=== PATIENT | female | born 1960 | race Caucasian/White ===

== ENCOUNTER → 2023-03-04 10:20 | Outpatient (CLI) | payer BC, OTHER, SELFPAY ==
--- NOTE | ~2023-03-04 | MR_ITS ---
EXAMINATION: MR lumbar spine wo con DATE: 03/04/2023 10:48 INDICATION: Radiculopathy, lumbar region. TECHNIQUE: Magnetic resonance imaging (MRI) of the lumbar spine was performed without intravenous con trast. Sequences included sagittal T2-weighted FSE, sagittal T2-weighted FS FSE, sagittal T1-weighted FSE, and axial T2-weighted FSE. COMPARISON: None FINDINGS: There is 11 degrees levoscoliosis of lumbar spine. There is 3 mm retrolisthesis of L3 on L4 and 6 mm retrolisthesis of L4 on L5. There is mildly decreased disc height at L2-L3 and severely dec reased disc height at L3-L4, L4-L5, and L5-S1 with endplate remodeling. The distal spinal cord signal intensity is normal. The conus medullaris is at L1. The following disc levels are specifically discu ssed: L1-L2: There is a central protrusion. There is severe bilateral facet joint osteoarthritis. There is mild bilateral neural foraminal stenosis. There is mild central canal stenosis. L2-L3: The disc is bulging. There is severe right and moderate left facet joint osteoarthritis. There is mild bilateral neural foraminal stenosis. There is mild central canal stenosis. L3-L4: The disc is bulging. There is severe right and moderate left facet joint osteoarthritis. There is moderate right and mild left neural foraminal stenosis. There is mild central canal stenosis. L4-L5: The disc is bulging. There is mild left facet joint osteoarthritis. There is moderate bilatera l neural foraminal stenosis. There is mild central canal stenosis. L5-S1: The disc is bulging. There is severe bilateral facet joint osteoarthritis. There is mild right and moderate left neural foraminal stenosis. There is mild central canal stenosis. IMPRESSION: 1. Severe lumbar spondylosis. 2. Lumbar levoscoliosis. Reviewed, dictated and finalized at location A.
== END ==
PROVIDERS: PCP Family Medicine; Visit Provider Anesthesiology Pain Medicine
DX: M47.26 Other spondylosis with radiculopathy, lumbar region (principal)
CPT/HCPCS: 72148

== ENCOUNTER 2024-08-04 05:48 | Emergency (ER) | payer BC, SELFPAY ==
--- NOTE | ~2024-08-04 | XR_ITS ---
EXAMINATION: XR chest 2V DATE: 08/04/2024 06:42 INDICATION: Chest pain. Shortness of breath. Cough. TECHNIQUE: Frontal and lateral views of the chest were obtained. COMPARISON: None. FINDINGS: There is mild scarring at the lung apices. No pleural effusion or pneumothorax. The heart s ize is normal. IMPRESSION: 1. Mild scarring at the lung apices. Reviewed, dictated and finalized at location A. 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
--- OUTSIDE RECORDS SUMMARY | 2024-08-04 05:51 | XMS_ITS | Continuity of Care Document ---
Author Organization [facility] Address [address] [place] [address] Phone Care Team Providers Care Material Handler Loader Name Role Phone Jona PTRosalva Unavailable Unavailabl e Procedures Procedure Date Manual Therapy Therapeutic Exercise PT Evaluation Low Complexity Therapeutic Exercise Manual Therapy Advance Directives Directive Yes / No Effective Date File Name No Information Encounters Encounter Description Practice Location Reason(s) For Visit Diagnoses Date Provider Providers Copied on Encounter [facility] [address], [place], [place], [id number], tel:[phone] [place] No Information 1 Anhoffer Rosalva. . [facility] [address], [place], [place], [id number], tel:[phone] [place] No Information 1 Niederhoffer Rosalva. . Referring Provider: Laith Vasquez, [address], [place], [address]. tel:[phone] [facility] [address] [place], [place] [address], [place], [place], [id number], tel:[phone] [place] No Information 1 Niederhoffer Rosalva. . Referring Provider: Laith Vasquez, [address], [place], [address]. tel:[phone] Family History Family Member Type Diagnosis Age At Onset No Information Payers Payer name Insurance type Covered green party ID Abraham wyman(s) [facility] [id number] Social History Type Description Quantity Date Captured Comments Sex Female Smoking Status No Information Chief Complaint And Reason For Visit No Information Reason For Referral Reason For Referral No Information History Of Present Illness Encounter Date Complaint History Of Prese nt Illness No Information Functional Status Date Functional Assessmen t No Information Instructions Date Instruction Additional Infor mation Giving encouragement to exercise Related to Overweight Giving encouragement to exercise Related to Overweight Assessments Type Assessment Date No Information Patient Care Teams Name Effective Dates (start - stop) Status Members No Information
--- OUTSIDE RECORDS SUMMARY | 2024-08-04 05:51 | XMS_ITS | Data Portability ---
Author Organization [facility] Address [address] [place] [address] Assessment No assessment recorded. Plan of Treatment Reminders Order Date Submit Date Provider Last Modified By Organization Details Last Modified Time Details Appointments ANY 15 2024 07:00A Xena Cobb, DO Not available Not available Not available Lab CBC w/ auto diff 2023 024 TRACEY [facility], [address], [place], [address], 04/04/2024 08:30:15 hepatic function panel, serum 2023 024 [email or web address] [facility], [address], [place], [address], 12/01/2023 11:43:53 lipid panel, serum 2023 024 TRACEY [facility], [address], [place], [address], 10/20/2023 16:36:26 hepatic function panel, serum 2023 024 TRACEY [facility], [address], [place], [address], 10/20/2023 16:36:28 iron + total iron-bind ing capacity (TIBC), serum 2023 024 TRACEY [facility], [address], [place], [address], 10/20/2023 16:36:29 CBC 2023 024 TRACEY [facility], [address], [facility] [address], [address], 10/20/2023 16:36:27 Referral gynecolog ist referral 2023 024 ATHENAFAX Gretchen Perera MD, [address] [facility], [facility] [address], [place], [address], 05/04/2024 10:25:22 Procedures None recorded. Surgeries None recorded. Imaging US, hip - rt hip 2023 024 [email or web address] [facility] Scheduling, [address] [facility], [place], [address], 05/03/2024 13:48:28 US, hip - u/s rt hip mass 2023 024 [email or web address] [facility] Scheduling, [address] [facility], [place], [address], 04/03/2024 13:40:02 Medication Orders cyclobenz aprine 10 mg tablet 2023 024 [email or web address] [facility] [id number], [address], 05/03/2024 13:48:28 tramadol 50 mg tablet 2023 024 TRACEY [facility] In [facility], [address] [place] [address], [address], 08/02/2023 09:39:01 Patient TargetsNo targets recorded. Patient Instructions Encounter Date Encounter Id Patient Instructions Last Modified By Organization Details Last Modified Time 05/03/2024 [id number] refer to cashier assistant [email or web address] Not available 05/03/2024 09:39:14 Reason for Referral Infant Childcare Provider Referral for Gy necologic examination Referring Physician: Abad Cobb, Family Medicine, Encounter Date: 05/03/2024 Results Created Date Observation Date Name Description Value Unit Range Abnormal Flag Note LastModifiedBy Organization Detail LastModifiedTime 10/19/19 24 10/20/2023 LIPID PANEL cholesterol, total 179 mg/dL 100-19 9 Not Available [facility] ([facility]) [address] [place], [address], 10/20/2023 16:36:26 10/19/19 24 10/20/2023 LIPID PANEL triglyceride s 137 mg/dL 0-149 Not Available [facility] ([facility]) [address] [place], [address], 10/20/2023 16:36:26 10/19/19 24 10/20/2023 LIPID PANEL HDL cholesterol 43 mg/dL >39 Not Available [facility] ([facility]) [address] [place], [address], 10/20/2023 16:36:26 10/19/19 24 10/20/2023 LIPID PANEL VLDL cholesterol angelo 24 mg/dL 5-40 Not Available [facility] ([facility]) [address] [place], [address], 10/20/2023 16:36:26 10/19/19 24 10/20/2023 LIPID PANEL LDL chol calc ([facility]) 112 mg/dL 0-99 above high normal Not Available [facility] ([facility]) [address] [place], [address], 10/20/2023 16:36:26 10/19/19 24 10/20/2023 CBC+P LATEL ET+HE M REVIE W WBC 7.7 x10e3 /uL 3.4-10 .8 Not Available [facility] ([facility]) [address] [place], [address], 10/20/2023 16:36:27 10/19/19 24 10/20/2023 CBC+P LATEL ET+HE M REVIE W RBC 3.34 x10e6 /uL 3.77-5 .28 below low normal Not Available [facility] ([facility]) [address] [place], [address], 10/20/2023 16:36:27 10/19/19 24 10/20/2023 CBC+P LATEL ET+HE M REVIE W hemoglobin 11.1 g/dL 11.1-1 5.9 Not Available [facility] ([facility]) [address] [place], [address], 10/20/2023 16:36:27 10/19/19 24 10/20/2023 CBC+P LATEL ET+HE M REVIE W hematocrit 33.7 % 34.0-4 6.6 below low normal Not Available [facility] ([facility]) [address] [place], [address], 10/20/2023 16:36:27 10/19/19 24 10/20/2023 CBC+P LATEL ET+HE M REVIE W MCV 101 fL 79-97 above high normal Not Available [facility] ([facility]) [address] [place], [address], 10/20/2023 16:36:27 10/19/19 24 10/20/2023 CBC+P LATEL ET+HE M REVIE W MCH 33.2 pg 26.6-3 3.0 above high normal Not Available [facility] ([facility]) [address] [place], [address], 10/20/2023 16:36:27 10/19/19 24 10/20/2023 CBC+P LATEL ET+HE M REVIE W MCHC 32.9 g/dL 31.5-3 5.7 Not Available [facility] ([facility]) [address] [place], [address], 10/20/2023 16:36:27 04/30/20 24 10/20/2023 CBC+P LATEL ET+HE M REVIE W RDW 12.4 % 11.7-1 5.4 Not Available [facility] ([facility]) [address] [facility], [place], [address], 10/20/2023 16:36:27 10/19/19 24 10/20/2023 CBC+P LATEL ET+HE M REVIE W platelets 504 x10e3 /uL 150-45 0 above high normal Not Available [facility] ([facility]) [address] [facility], [place], [address], 10/20/2023 16:36:27 10/19/19 24 10/20/2023 CBC+P LATEL ET+HE M REVIE W neutrophils 62 % notest ab. Not Available [facility] ([facility]) [address] [facility], [place], [address], 10/20/2023 16:36:27 10/19/19 24 10/20/2023 CBC+P LATEL ET+HE M REVIE W lymphs 31 % notest ab. Not Available [facility] ([facility]) [address] [facility], [place], [address], 10/20/2023 16:36:27 10/19/19 24 10/20/2023 CBC+P LATEL ET+HE M REVIE W monocytes 5 % notest ab. Not Available [facility] ([facility]) [address] [facility], [place], [address], 10/20/2023 16:36:27 10/19/19 24 10/20/2023 CBC+P LATEL ET+HE M REVIE W eos 1 % notest ab. Not Available [facility] ([facility]) [address] [facility], [place], [address], 10/20/2023 16:36:27 10/19/19 24 10/20/2023 CBC+P LATEL ET+HE M REVIE W basos 1 % notest ab. Not Available [facility] ([facility]) [address] [facility], [place], [address], 10/20/2023 16:36:27 10/19/19 24 10/20/2023 CBC+P LATEL ET+HE M REVIE W neutrophils absolute 4.8 x10e3 /uL 1.4-7. 0 Not Available [facility] ([facility]) [address] [facility], [place], [address], 10/20/2023 16:36:27 10/19/19 24 10/20/2023 CBC+P LATEL ET+HE M REVIE W lymphs (absolute) 2.4 x10e3 /uL 0.7-3. 1 Not Available [facility] ([facility]) [address] [facility], [place], [address], 10/20/2023 16:36:27 10/19/19 24 10/20/2023 CBC+P LATEL ET+HE M REVIE W monocytes(ab solute) 0.4 x10e3 /uL 0.1-0. 9 Not Available [facility] ([facility]) [address] [facility], [place], [address], 10/20/2023 16:36:27 10/19/19 24 10/20/2023 CBC+P LATEL ET+HE M REVIE W eos (absolute value) 0.1 x10e3 /uL 0.0-0. 4 Not Available [facility] ([facility]) [address] [facility], [place], [address], 10/20/2023 16:36:27 10/19/19 24 10/20/2023 CBC+P LATEL ET+HE M REVIE W baso(absolut e) 0.1 x10e3 /uL 0.0-0. 2 Not Available [facility] ([facility]) [address] [place], [address], 10/20/2023 16:36:27 10/19/19 24 10/20/2023 CBC+P LATEL ET+HE M REVIE W RBC comment Macroc ytosis . Not Available [facility] ([facility]) [address] [facility], [address], 10/20/2023 16:36:27 10/19/19 24 10/20/2023 CBC+P LATEL ET+HE M REVIE W platelet comment Increa sed adequa te Not Available [facility] ([facility]) [address] [facility] [place], [address], 10/20/2023 16:36:27 10/19/19 24 10/20/2023 HEPAT IC FUNCT ION PANEL (7) protein, total 7.2 g/dL 6.0-8. 5 Not Available [facility] ([facility]) [address] [facility] [place], [address], 10/20/2023 16:36:28 10/19/19 24 10/20/2023 HEPAT IC FUNCT ION PANEL (7) albumin 4.2 g/dL 3.9-4. 9 Not Available [facility] ([facility]) [address] [facility] [place], [address], 10/20/2023 16:36:28 10/19/19 24 10/20/2023 HEPAT IC FUNCT ION PANEL (7) bilirubin, total 0.3 mg/dL 0.0-1. 2 Not Available [facility] ([facility]) [address] [facility] [place], [address], 10/20/2023 16:36:28 10/19/19 24 10/20/2023 HEPAT IC FUNCT ION PANEL (7) bilirubin, direct 0.10 mg/dL 0.00-0 .40 Not Available [facility] ([facility]) [address] [facility] [place], [address], 10/20/2023 16:36:28 10/19/19 24 10/20/2023 HEPAT IC FUNCT ION PANEL (7) alkaline phosphatase 153 IU/L 44-121 above high normal Not Available [facility] ([facility]) [address] [place], [address], 10/20/2023 16:36:28 10/19/19 24 10/20/2023 HEPAT IC FUNCT ION PANEL (7) AST (SGOT) 17 IU/L 0-40 Not Available [facility] ([facility]) [address] [place], [address], 10/20/2023 16:36:28 10/19/19 24 10/20/2023 HEPAT IC FUNCT ION PANEL (7) ALT (SGPT) 13 IU/L 0-32 Not Available [facility] ([facility]) [address] [place], [address], 10/20/2023 16:36:28 10/19/19 24 10/20/2023 IRON AND TIBC iron bind.cap.(TI BC) 334 ug/dL 250-45 0 Not Available [facility] ([facility]) [address] [place], [address], 10/20/2023 16:36:28 10/19/19 24 10/20/2023 IRON AND TIBC UIBC 295 ug/dL 118-36 9 Not Available [facility] ([facility]) [address] [place], [address], 10/20/2023 16:36:28 10/19/19 24 10/20/2023 IRON AND TIBC iron 39 ug/dL 27-139 Not Available [facility] ([facility]) [address] [place], [address], 10/20/2023 16:36:28 10/19/19 24 10/20/2023 IRON AND TIBC iron saturation 12 % 15-55 below low normal Not Available [facility] ([facility]) [address] [place], [address], 10/20/2023 16:36:28 04/03/2004/04/2024 HEPAT IC FUNCT ION PANEL (7) protein, total 7.0 g/dL 6.0-8. 5 Not Available [facility] ([facility]) [address] [facility] [place], [address], 04/04/2024 08:30:13 04/03/2004/04/2024 HEPAT IC FUNCT ION PANEL (7) albumin 4.5 g/dL 3.9-4. 9 Not Available [facility] ([facility]) [address] [facility] [place], [address], 04/04/2024 08:30:13 04/03/2004/04/2024 HEPAT IC FUNCT ION PANEL (7) bilirubin, total 0.4 mg/dL 0.0-1. 2 Not Available [facility] ([facility]) [address] [facility] [place], [address], 04/04/2024 08:30:13 04/03/2004/04/2024 HEPAT IC FUNCT ION PANEL (7) bilirubin, direct 0.11 mg/dL 0.00-0 .40 Not Available [facility] ([facility]) [address] [facility] [place], [address], 04/04/2024 08:30:13 04/03/2004/04/2024 HEPAT IC FUNCT ION PANEL (7) alkaline phosphatase 126 IU/L 44-121 above high normal Not Available [facility] ([facility]) [address] [facility] [place], [address], 04/04/2024 08:30:13 04/03/2004/04/2024 HEPAT IC FUNCT ION PANEL (7) AST (SGOT) 16 IU/L 0-40 Not Available [facility] ([facility]) [address] [facility] [place], [address], 04/04/2024 08:30:13 04/03/20 24 04/04/2024 HEPAT IC FUNCT ION PANEL (7) ALT (SGPT) 13 IU/L 0-32 Not Available [facility] ([facility]) [address] [facility], [place], [address], 04/04/2024 08:30:13 04/03/20 24 04/04/2024 CBC WITH DIFFE RENTI AL/PL ATELE T WBC 5.4 x10e3 /uL 3.4-10 .8 Not Available [facility] ([facility]) [address] [facility] [place], [address], 04/04/2024 08:30:15 04/03/2004/04/2024 CBC WITH DIFFE RENTI AL/PL ATELE T RBC 3.60 x10e6 /uL 3.77-5 .28 below low normal Not Available [facility] ([facility]) [address] [facility], [place], [address], 04/04/2024 08:30:15 04/03/2004/04/2024 CBC WITH DIFFE RENTI AL/PL ATELE T hemoglobin 11.9 g/dL 11.1-1 5.9 Not Available [facility] ([facility]) [address] [place], [address], 04/04/2024 08:30:15 04/03/2004/04/2024 CBC WITH DIFFE RENTI AL/PL ATELE T hematocrit 36.5 % 34.0-4 6.6 Not Available [facility] ([facility]) [address] [place], [address], 04/04/2024 08:30:15 04/03/20 24 04/04/2024 CBC WITH DIFFE RENTI AL/PL ATELE T MCV 101 fL 79-97 above high normal Not Available [facility] ([facility]) [address] [place], [address], 04/04/2024 08:30:15 04/03/20 24 04/04/2024 CBC WITH DIFFE RENTI AL/PL ATELE T MCH 33.1 pg 26.6-3 3.0 above high normal Not Available [facility] ([facility]) [address] [facility], [place], [address], 04/04/2024 08:30:15 04/03/2004/04/2024 CBC WITH DIFFE RENTI AL/PL ATELE T MCHC 32.6 g/dL 31.5-3 5.7 Not Available [facility] ([facility]) [address] [facility], [place], [address], 04/04/2024 08:30:15 04/03/2004/04/2024 CBC WITH DIFFE RENTI AL/PL ATELE T RDW 12.4 % 11.7-1 5.4 Not Available [facility] ([facility]) [address] [facility], [place], [address], 04/04/2024 08:30:15 04/03/2004/04/2024 CBC WITH DIFFE RENTI AL/PL ATELE T platelets 414 x10e3 /uL 150-45 0 Not Available [facility] ([facility]) [address] [facility], [place], [address], 04/04/2024 08:30:15 04/03/2004/04/2024 CBC WITH DIFFE RENTI AL/PL ATELE T neutrophils 53 % notest ab. Not Available [facility] ([facility]) [address] [facility], [place], [address], 04/04/2024 08:30:15 04/03/2004/04/2024 CBC WITH DIFFE RENTI AL/PL ATELE T lymphs 38 % notest ab. Not Available [facility] ([facility]) [address] [facility], [place], [address], 04/04/2024 08:30:15 10/14/20 24 04/04/2024 CBC WITH DIFFE RENTI AL/PL ATELE T monocytes 6 % notest ab. Not Available [facility] ([facility]) [address] [facility], [place], [address], 04/04/2024 08:30:15 04/03/20 24 04/04/2024 CBC WITH DIFFE RENTI AL/PL ATELE T eos 2 % notest ab. Not Available [facility] ([facility]) [address] [facility], [place], [address], 04/04/2024 08:30:15 04/03/2004/04/2024 CBC WITH DIFFE RENTI AL/PL ATELE T basos 1 % notest ab. Not Available [facility] ([facility]) [address] [facility], [place], [address], 04/04/2024 08:30:15 04/03/2004/04/2024 CBC WITH DIFFE RENTI AL/PL ATELE T neutrophils (absolute) 2.8 x10e3 /uL 1.4-7. 0 Not Available [facility] ([facility]) [address] [facility], [place], [address], 04/04/2024 08:30:15 04/03/20 24 04/04/2024 CBC WITH DIFFE RENTI AL/PL ATELE T lymphs (absolute) 2.1 x10e3 /uL 0.7-3. 1 Not Available [facility] ([facility]) [address] [facility], [place], [address], 04/04/2024 08:30:15 04/03/2004/04/2024 CBC WITH DIFFE RENTI AL/PL ATELE T monocytes(ab solute) 0.3 x10e3 /uL 0.1-0. 9 Not Available [facility] ([facility]) [address] [facility], [place], [address], 04/04/2024 08:30:15 04/03/20 24 04/04/2024 CBC WITH DIFFE RENTI AL/PL ATELE T eos (absolute) 0.1 x10e3 /uL 0.0-0. 4 Not Available [facility] ([facility]) [address] [facility], [place], [address], 04/04/2024 08:30:15 04/03/20 24 04/04/2024 CBC WITH DIFFE RENTI AL/PL ATELE T baso (absolute) 0.0 x10e3 /uL 0.0-0. 2 Not Available [facility] ([facility]) [address] [facility], [place], [address], 04/04/2024 08:30:15 04/03/20 24 04/04/2024 CBC WITH DIFFE RENTI AL/PL ATELE T immature granulocytes 0 % notest ab. Not Available [facility] ([facility]) [address] [facility], [place], [address], 04/04/2024 08:30:15 04/03/20 24 04/04/2024 CBC WITH DIFFE RENTI AL/PL ATELE T immature grans (abs) 0.0 x10e3 /uL 0.0-0. 1 Not Available [facility] ([facility]) [address] [facility], [place], [address], 04/04/2024 08:30:15 Result Notes None recorded. Problems Name Problem SNOMED Code Status Onset Date Resolution Date Notes Provider Name and Address Organization Details Recorded Time Chronic pain syndrome 017416849 Active 2023 Abad Cobb DO Attn: Caron stacy,[address] [facility], [place], [address], [facility] 12:49:12 Gastroesophage al reflux disease without esophagitis 796988381 Active 2023 Abad Cobb DO Attn: Caron stacy,[address] [place], [address], [facility] - [facility] 4 12:49:13 Depressive disorder 39458296 Active 2023 Abad Cobb DO Attn: Caron stacy,[address] [place], [address] [place] [address] 2, [facility] - [facility] 4 12:49:15 Iron deficiency anemia 72217589 Active 2023 Abad Cobb DO Attn: Caron stacy,[address] [place], [address] [place] [address] 2, [facility] - [facility] 4 12:49:16 Hyperglycemia 06108681 Active 2023 Abad Cobb DO Attn: Caron stacy,[address] [place], [address] [place] [address] 2, [facility] - [facility] 4 12:49:18 Vitamin D deficiency 56247526 Active 2023 Abad Cobb DO Attn: Caron stacy,[address] [place], [address] [place] [address] 2, [facility] - [facility] 4 09:44:31 Ex-smoker 2929040 Active 2023 Abad Cobb DO Attn: Lorenamatheus stacy,[address] [place], [address] [place] [address] 2, [facility] - [facility] 4 09:45:37 Lipoma 56886198 Active 2023 Abad Cobb DO Attn: Lorenamatheus stacy,[address] [place], [address] [place] [address] 2, [facility] - [facility] 4 09:35:28 Problem Notes None recorded. Medical Equipment None Reported. Allergies No known drug allergies Medications Name Sig Start Date Stop Date Status Note LastModified by Organization Details LastModified Time cyclobenzap rine 10 mg tablet TAKE 1 TABLET BY MOUTH 3 TIMES A DAY NEEDED active Not Available Not Available No t Available hydrocodone 5 mg-acetamin ophen 325 mg tablet TAKE 1 TABLET BY MOUTH EVERY DAY 08/02 completed Not Available Not Available Not Available Zithromax Z-Geovani 250 mg tablet TAKE 2 TABLETS (500 MG) BY ORAL ROUTE ONCE DAILY FOR 1 DAY THEN 1 TABLET (250 MG) BY ORAL ROUTE ONCE DAILY FOR 4 DAYS 2024 active Not Available Not Available Not Avai lable tramadol 50 mg tablet Take 1 tablet every 6 hours by oral route. 2024 active Not Available Not Available Not Avai lable citalopram 20 mg tablet TAKE 1 TABLET BY MOUTH EVERY DAY active Not Available Not Available No t Available lorazepam 0.5 mg tablet TAKE 1 TABLET BY MOUTH EVERY DAY NEEDED FOR ANXIETY 08/02 completed Not Available Not Available Not Available ciprofloxac in 0.3 % eye drops INSTILL 1 DROP INTO AFFECTED EYE(S) BY OPHTHALMI C ROUTE EVERY 6 HOURS FOR 2 DAYS active Not Available Not Available No t Available hydrocodone 7.5 mg-acetamin ophen 325 mg tablet TAKE 1 TABLET BY MOUTH TWICE A DAY NEEDED 08/02 completed Not Available Not Available Not Available pantoprazol e 40 mg tablet,marissa yed release TAKE 1 TABLET TWICE A DAY BY ORAL ROUTE FOR 90 DAYS. active Not Available Not Available No t Available methylpredn isolone 4 mg tablets in a dose pack TAKE 6 TABLETS ON DAY 1 DIRECTED ON PACKAGE AND DECREASE BY 1 TAB EACH DAY FOR A TOTAL OF 6 DAYS 08/02 completed Not Available Not Available Not Available Vitals Date Recorded Body weight Body mass index (BMI) Body height Oxygen saturation Oxygen saturation in Arterial blood by Pulse oximetry Heart rate Body temperature Provider Name and Address Organization Details Last Updated DateTime 4 58413.1 6 g 24.6 kg/m2 162.56 cm 99 % 99 % 111 /min 98 [degF] Julieta [facility] 4 09:28:02 Date Recorded Systolic blood pressure Diastolic blood pressure Provider Name and Address Organization Details Last Updated DateTime 08/02/2023 148 mm[Hg] 82 mm[Hg] Abad Cobb DO Attn: Accounting,[address] [facility], [place], [address], [facility] 08/02/2023 09:44:54 Date Recorded Body height Body mass index (BMI) Body weight Oxygen saturation Oxygen saturation in Arterial blood by Pulse oximetry Heart rate Provider Name and Address Organization Details Last Updated DateTime 4 162.56 cm 24.5 kg/m2 01139.7 1 g 97 % 97 % 96 /min Adriana Awad MA [facility] 11:18:36 Date Recorded Systolic blood pressure Diastolic blood pressure Provider Name and Address Organization Details Last Updated DateTime 11/01/2023 124 mm[Hg] 78 mm[Hg] Abad Cobb DO Attn: Accounting,[address] [place], [address], [facility] 11/01/2023 11:48:10 Date Recorded Body height Body mass index (BMI) Body weight Oxygen saturation Oxygen saturation in Arterial blood by Pulse oximetry Heart rate Provider Name and Address Organization Details Last Updated DateTime 162.56 cm 25.4 kg/m2 11335.6 7 g 99 % 99 % 94 /min Susana Valero MA [facility] 09:03:03 Date Recorded Systolic blood pressure Diastolic blood pressure Provider Name and Address Organization Details Last Updated DateTime 05/03/2024 138 mm[Hg] 84 mm[Hg] Abad Cobb DO Attn: Accounting,[address] [place], [address] 05/03/2024 09:38:31 Social History Question Answer Notes LastModified by Organizat ion Details LastModified Time Tobacco Smoking Status Former Smoker Julieta Degroot MA null, [facility] 08/02/2023 09:27:04 What Is Your Level Of Alcohol Consumption? None Information not available 08/02/2023 What Was The Date Of Your Most Recent Tobacco Screening? 05/03/2024 [email or web address] Information not available 05/03/2024 Do You Or Have You Ever Used Any Other Forms Of Tobacco Or Nicotine? No Information not available 08/02/2023 Sex: Unknown Functional Status None recorded. Mental Status None recorded. Family History Nothing Reported. Medical History Condition Response Coronary Artery Disease N Other Y Atrial Fibrillation N High Blood Pressure N Thyroid Problems N Kidney or Bladder Problems N GI Problems N Depression N COPD N Blood Clots N Skin Problems N Eating Disorder N Anemia N Heart Attack (IA) N Anxiety Disorder Y Diabetes N Muscle, Joint, or Bone Problems N Arthritis N Seizures/Epilepsy N Acid Reflux (GERD) Y Cancer N Stroke N Asthma N Allergies N ADHD N Substance Abuse N High Cholesterol N Hepatitis N Liver Disease N Schizophrenia N Headaches N Heart Failure N Osteoporosis Y Gynecological HistoryNo gynecological history recorded. Obstetrics History GPAL:G 0 P 0 0 0 0 Past Encounters Encounter ID Performer Location Encounter Start Date Encounter Closed Date Diagnosis/Indication Diagnosis SNOMED-CT Code Diagnosis ICD10 Code Diagnosis Note [id number] Abad Cobb, DO [email or web address] [place] [address] [place] [id number] 08/02/2023 09:16:11 08/05/2023 08:54:53 Chronic pain syndrome 320396318 G89.4 tramadol prn Gastroesop hageal reflux disease without esophagitis 469999694 K21.9 pantoprazo le 40 mg Depressive disorder 3548 9007 F32.A celexa 20 mg daily Iron defic iency anemia 19898935 D50.9 last hgb 10.9same as 5 years agorecheck a iron and cbc Hyperglycemia 59018958 R 73.9 labs reviewed Vitamin D deficiency 347 79331 E55.9 otc replacemen t Ex-smoker 6347136 Z87.89 1 quit 3 years agohad been doing 1 cigarette a day [id number] Abad Cobb, DO [email or web address] [place] [address] [id number] 11/01/2023 10:14:59 11/01/2023 12:10:20 Chronic pain syndrome 410168552 G89.4 tramadol prnChronic condition Depressive disorder 3548 9007 F32.A celexa 20 mg dailyChron ic conditionS table and at goal Ex-smoker 4612018 Z87.89 1 quit 3 years agohad been doing 1 cigarette a dayRecomme nd complete cessation Gastroesop hageal reflux disease without esophagitis 669192569 K21.9 pantoprazo le 40 mgchronic conditionA t goal Vitamin D deficiency 347 30077 E55.9 otc replacemen t Iron defic iency anemia 78697459 D50.9 Chronic conditionL ast hemoglobin normalLast iron level normal as of October 19, 2023She did have a slightly elevated alkaline phosphatas eLabs will be repeatedPl atelet count 504 [place] 61911724 D17.9 mass right anterior hip regionus [id number] [facility] DO [facility] Samina torres [place] II [address] [facility] [address] [facility] [address] 05/03/2024 08:55:03 05/03/2024 11:27:13 Chronic pain syndrome [id number] G89.4 tramadol prnChronic condition Depressive disorder 3548 9007 F32.A celexa 20 mg dailyChron ic conditionS table and at goal Gastroesop hageal reflux disease without esophagitis [id number] K21.9 pantoprazo le 40 mgchronic conditionA t goal Iron defic iency anemia [id number] D50.9 Chronic conditionL ast hemoglobin normalLast iron level normal as of October 19, 2023 Vitamin D deficiency 347 63515 E55.9 otc replacemen t Lipoma [id number] D17.9 mass right anterior hip regionchec k a us Gynecologi c examination [id number] Z01.419 Health Concerns Section Related Observation LastModified by Organization Detai ls LastModified Time None Recorded Concern Status LastModified by Organization Details LastModified Time None Recorded Advance Directives Directive None Recorded Payers Encounter Date Sequence Insurance Name Policy Number Policy Crump Covered Member ID Crump Member ID Guarantor Name 08/02/2023 1 [place] [id number] Muna Hilderbrand [id number] Muna Hilderbrand 11/01/2023 1 [place] [id number] 3 Muna Hilderbrand [id number] Muna Hilderbrand 05/03/2024 1 [place] [id number] 3 Muna Hilderbrand [id number] Muna Hilderbrand Notes Date Note Type Note Provider Name and Address Organization Details Recorded Time 08/02/2023 text/html establish caredoing well Abad Cobb DO Attn: Accounting,[address] [facility], [place], [address], [facility] 08/02/2023 18:57:11 11/01/2023 text/html Routine 3-month follow-upmass right anterior hip years Abad Cobb DO Attn: Accounting,[address] [facility], [place], [address], [facility] 11/01/2023 20:05:38 05/03/2024 text/html routine 6 month follow updid not get the mass on her hip taken care of Abad Cobb DO Attn: Accounting,[address] [facility], [place], [address], [facility] 05/03/2024 18:26:54 OBGyn Episode No OBEpisode recorded.
--- OUTSIDE RECORDS SUMMARY | 2024-08-04 05:51 | XMS_ITS | Clinical Summary ---
Author Organization [facility] Address [address] [place] [id number] Care Team Providers Care Office System Analyst Name Role Phone Jacoby Monroy MD Primary Care Provider Unavail able Allergies No known active allergies Medications HYDROcodone-acet aminophen 7.5-325 MG tablet Take 1 tablet by mouth 2 (two) times daily as needed. 12/03/2020 Active LORazepam 0.5 MG tablet Take 1 tablet by mouth as needed. 11/14/2020 Active pantoprazole EC 20 MG tablet Take 20 mg by mouth daily. Active citalopram 20 MG tablet Take 20 mg by mouth daily. Active Multiple Vitamins-Mineral s (MULTIVITAMIN ADULTS OR) Take 1 mg by mouth daily. Active VITAMIN D, CHOLECALCIFEROL, OR Take 1 tablet by mouth daily. Active cyclobenzaprine 10 MG tablet Take 10 mg by mouth as needed. FOR MUSCLE SPASMS 12/31/2020 Active Family History Medical History Relation Comments Diabetes Brother diet controlled No Known Problems Daughter No Known Problems Father No Known Problems Mother Dementia Sister No Known Problems Son Relation Status Comments Brother Alive Daughter Alive Father Mother Sister Alive Son Alive Social History Tobacco Use Types Packs/Day Years Used Date Smoking Tobacco: Never Smokeless Tobacco: Never Alcohol Use Standard Drinks/Week Comments Not Currently 0 (1 standard drink = 0.6 oz pur e alcohol) Comments No Sex and Gender Information Value Date Recorded Sex Assigned at Not on file Legal Sex Female 6:30 PM CDT Gender Identity Not on file Sexual Orientation Not on file Last Filed Vital Signs Vital Sign Reading Time Taken Comments Blood Pressure 168/93 01/16/2021 5:35 PM CDT Pulse 90 01/16/2021 5:35 PM CDT Temperature 36.9 C (98.4 F) 01/16/2021 5:35 PM CDT Respiratory Rate 18 01/16/2021 5:35 PM CDT Oxygen Saturation 100% 01/16/2021 5:35 PM CDT Inhaled Oxygen Concentration - - Weight 66 kg (145 lb 8.1 oz) 01/16/2021 10:00 AM CDT Height 162.6 cm (5' 4 ) 01/16/2021 10:00 AM CDT Body Mass Index 24.98 01/16/2021 10:00 AM CDT Plan of Treatment Health Maintenance Due Date Last Done Comments Cervical Cancer Screening Pa p Smear (Age 30 to 64) Every 3 Years 1962 Colorectal Cancer Screening Colonoscopy (10 Years) 1962 Annual Physical 1965 Hepatitis C 1980 Cervical Cancer Screening Pa p with HPV Testing (Age 30 to 64) Every 5 Years 1992 Cervical Cancer Screening wi th HPV 1992 Mammogram Screening 2002 Zoster Vaccines (1 of 2) 2012 DTaP, Tdap and Td Vaccines ( 2 - Td or Tdap) 07/05/2018 07/05/2008 COVID-19 Vaccine (3 - 2023-2 5 season) 2024 10/14/2020, 09/23/2020 Influenza Adult (#1) 2024 03/21/2022 RSV Immunization or 60+ Years (1 - 1-dose 75+ series) 2037 Meningococcal B Vaccine Aged Out No l onger eligible based on patient's age to complete this topic Meningococcal Vaccine Aged Out No john ileana eligible based on patient's age to complete this topic Pneumococcal Vaccine: Pediatrics (0 to 5 Years) and At-Risk Patients (6 to 64 Years) Aged Out No longer eligible b ased on patient's age to complete this topic RSV Immunizations Under 20 Months Aged Out No longer eligible b ased on patient's age to complete this topic Medical Devices Implanted Type Area Lining Stamper Device Identifier Shelf Expiration Date Model / Serial / Lot Lapiplasty 3.5mm Transverse Screw Implanted:Qty: 1 on 01/16/2021 by Laith Flynn DPM at [facility] Screw Right: Foot [id number] 12/13/2022 [id number] / / [id number] Description:MARIA ESTHER Ibs 2.2-S Snap Off Screw Implanted:Qty: 1 on 01/16/2021 by Laith Flynn DPM at [facility] Screw Right: Toe [id number] 03/20/2024 S22 [id number] / / [id number] Description:[id number], RIGHT SECOND TOE Neospan Superelastic Compression Staple With Instuments Implanted:Qty: 1 on 01/16/2021 by Laith Flynn DPM at [facility] Staple Right: Foot [id number] 08/03/2025 T50 [id number] / / [id number] Description:[id number] K-Wire 1.1mm Implanted:Qty: 1 on 01/16/2021 by Laith Flynn DPM at [facility] Wire Right: Toe 0.045 INCH [id number] S / / Description:2ND RIGHT TOE Lapiplasty System 2, Anatomic Biplanar Implants Implanted:Qty: 1 on 01/16/2021 by Laith Flynn DPM at [facility] Right: Foot [id number] 11/13/2023 14 / / [id number] Description:MARIA ESTHER, RIGHT ME DIAL FOOT/GREAT TOE Tribio Implant Implanted:Qty: 1 on 01/16/2021 by Laith Flynn DPM at [facility] Right: Foot [id number] 10/18/2022 [id number] / [id number] / [id number] Description:[id number] Alloaid Pip Allograft Implanted:Qty: 1 on 01/16/2021 by Laith Flynn DPM at [facility] Right: Toe 03/01/2022 [id number] / / Description:[id number], 2ND TO E Insurance [facility] Care Teams Office System Analyst Relationship Specialty Start Date End Date Jacoby Monroy MD PCP - General FAMILY PRACTICE 12/16/20
--- NOTE | 2024-08-04 06:02 | ECG_ITS ---
Test Date: 2024-08-04 06:14:40 Measurements Intervals [place] Rate: 106 P: 34 FL: 167 QRS: 27 QRSD: 103 T: 38 QT: 351 QTc: 468 Interpretive Statements SINUS TACHYCARDIA BORDERLINE R WAVE PROGRESSION, ANTERIOR LEADS CONSIDER INFERIOR INFARCT, AGE INDETERMINATE BASELINE ARTIFACT- V5 ABNORMAL ECG No previous ECG available for comparison Electronically Signed On 08-04-2024 06:56:45 STATE APPELLATE CLERK by Derrell Zapata D.O.
[2024-08-04 06:13] VITALS: BP 162/96; PULSE 104; RESP 16; TEMP 36.4; O2SAT 97
[2024-08-04 06:32] LABS: Basophils Percent Auto 0.2 % (0.2-1.2); Eosinophils Percent Auto 0.6 % (0-4.4); Hemoglobin 12.2 g/dL (12.0-15.0); Immature Granulocyte Absolute 0.01 K/mm3 (0.00-0.031); Immature Granulocyte Percent A 0.2 % (0-0.5); Lymphocytes Absolute Auto 1.38 K/mm3 (0.9-3.2); Lymphocytes Percent Auto 25.4 % (18.3-44.2); Mean Corpuscular HGB Conc 32.1 g/dl (32-36); Mean Corpuscular Hemoglobin 33.3 pg (26-34); Mean Corpuscular Volume 103.8 fl (80-100); Mean Platelet Volume 8.9 fl (7.4-10.4); Monocytes Absolute Auto 0.3 K/mm3 (0.1-0.6); Monocytes Percent Auto 6.1 % (2.6-8.5); Neutrophils Absolute Auto 3.7 K/mm3 (1.3-6.7); Neutrophils Percent Auto 67.5 % (45.5-73.1); Platelet Count Result 306 k/mm3 (150-375); Red Blood Count 3.66 M/mm3 (4.2-5.4); Red Cell Distribution Width 13.2 % (11.5-14.5); White Blood Count 5.4 K/mm3 (4.5-10.0)
[2024-08-04 06:42] LABS: Alanine Aminotransferase 26 U/L (6-35); Albumin Level 4.2 g/dL (3.5-5.1); Alkaline Phosphatase 121 U/L (38-126); Anion Gap 13 mmol/L (4-12); Aspartate Amino Transferase 27 U/L (14-36); Bilirubin,Total 0.4 mg/dL (0.2-1.3); Blood Urea Nitrogen 10 mg/dL (7-17); Calcium 8.9 mg/dL (8.4-10.2); Carbon Dioxide 19 mmol/L (22-30); Chloride 101 mmol/L (98-107); Estimated CRCL calculation 63 ml/min; Estimated Glomerular Filt Rate > 60; Glucose 143 mg/dL (65-110); Lipase 28 U/L (23-300); Potassium 3.8 mmol/L (3.4-5.0); Sodium 133 mmol/L (137-145)
[2024-08-04 06:54] LABS: Troponin I < 0.012 ng/mL (0.000-0.034)
[2024-08-04 07:09] LABS: Influenza A QL RT-PCR Positive (Negative); Influenza B QL RT-PCR Negative (Negative); RSV RNA, RT-PCR Negative (Negative); SARS-CoV-2 RNA PCR Negative (Negative)
[2024-08-04 07:18] LABS: INR 0.9; Partial Thromboplastin Time 27.1 Seconds (22.3-36.8); Prothrombin Time 12.7 Seconds (11.1-14.7)
[2024-08-04] MEDS: SODIUM CHLORIDE 0.9% IV 1,000 ML 999 ML IV CONT (08:06)
[2024-08-04] MEDS: KETOROLAC 30 MG/ML VIAL (*BKC) IV PUSH (08:07)
[2024-08-04 08:21] VITALS: O2SAT 98
[2024-08-04 08:44] VITALS: BP 174/83; PULSE 99; RESP 20; TEMP 36.4; O2SAT 98
--- NOTE | 2024-08-04 09:01 | ED_ITS ---
HPI - General Adult General Chief complaint: Shortness of Breath/Dyspnea Stated complaint: n/v/d, sob, upper back pain Time Seen by Provider: 08/04/24 07:05 Source: patient Mode of arrival: ambulatory Limitations: no limitations History of Present Illness HPI narrative: 64-year-old otherwise healthy here with the complaints of not feeling well, upper back pain, nausea, weakness mild cough for past 4 days. She states that she works [employer] might have been exposed to flu. She denies any abdominal pain. Also complains of sore throat. Onset (ago): day(s) (4) Location: chest and back Radiation: back Severity: moderate Quality: aching Pain Consistency: constant Exacerbating factors: none Associated symptoms: denies other symptoms Related Data Allergies Allergy/AdvReac Type Severity Reaction Status Date / Time No Known Allergies Allergy Verified 08/04/24 05:49 Review of Systems 2 Review of Systems: All systems reviewed & are unremarkable except as noted in HPI and below Constitutional: Constitutional: Reports no additional constitutional complaints Eyes: Eyes: Reports no additional eye complaints ENT: Reports system reviewed and no additional complaints, except as documented Cardiovascular: Cardiovascular: Reports as per HPI Respiratory: Respiratory: Reports as per HPI Gastrointestinal: Gastrointestinal: Reports no additional gastrointestinal complaints Musculoskeletal: Musculoskeletal: Reports as per HPI Neurologic: Reports system reviewed and no additional complaints, except as documented Exam 2 Narrative: GENERAL: Well-appearing, well-nourished, and in no acute distress. HEAD: Normocephalic, atraumatic. EYES: PERRLA and EOMI. ENT: Nares clear, no rhinorrhea or epistaxis. Mucous membranes moist. No tonsillar exudate NECK: Supple. CHEST: Clear to auscultation. No respiratory distress. HEART: Regular rate and rhythm. No murmur heard. Normal peripheral pulses. ABDOMEN: Soft, nontender, nondistended, normal active bowel sounds. EXTREMITIES: Normal range of motion. No edema. SKIN: Warm, dry, no rash. NEURO: No focal deficits. Alert and oriented x3. PSYCH: Normal mood and affect. Course Course Emergency Course: Informed patient about her lab work x-ray and EKG findings. Advised to drink plenty of fluids does not meet criteria for Tamiflu as his symptoms are ongoing for last 4 days. Advised her to take Tylenol or ibuprofen for body aches and fever, rest. She requested couple days off from work . Vital Signs Vital signs: Vital Signs Temperature 36.4 C L 08/04/24 06:13 Pulse Rate 104 H 08/04/24 06:13 Respiratory Rate 16 08/04/24 06:13 Blood Pressure 162/96 H 08/04/24 06:13 Pulse Oximetry 97 08/04/24 06:13 Oxygen Delivery Room Air 08/04/24 06:13 Temperature 36.4 C 08/04/24 08:44 Pulse Rate 99 08/04/24 08:44 Respiratory Rate 20 08/04/24 08:44 Blood Pressure 174/83 H 08/04/24 08:44 Pulse Oximetry 98 08/04/24 08:44 Oxygen Delivery Room Air 08/04/24 08:21 Medical Decision Making Differential Diagnosis Differential Diagnosis: Viral syndrome, influenza, pneumonia Medical Records Medical records reviewed: Yes I reviewed the external patient's medical records. Vital Signs Vital Signs: Vital Signs Temperature 36.4 C L 08/04/24 06:13 Pulse Rate 104 H 08/04/24 06:13 Respiratory Rate 16 08/04/24 06:13 Blood Pressure 162/96 H 08/04/24 06:13 Pulse Oximetry 97 08/04/24 06:13 Oxygen Delivery Room Air 08/04/24 06:13 Temperature 36.4 C 08/04/24 08:44 Pulse Rate 99 08/04/24 08:44 Respiratory Rate 20 08/04/24 08:44 Blood Pressure 174/83 H 08/04/24 08:44 Pulse Oximetry 98 08/04/24 08:44 Oxygen Delivery Room Air 08/04/24 08:21 Lab Data Lab results reviewed: Yes I reviewed the patient's lab results. 08/04/24 06:25 08/04/24 06:25 Labs: Lab Results 08/04/24 Range/Units 06:25 WBC 5.4 (4.5-10.0) K/mm3 RBC 3.66 L (4.2-5.4) M/mm3 Hgb 12.2 (12.0-15.0) g/dL Hct 38.0 (37.0-47.0) % MCV 103.8 H (80-100) fl MCH 33.3 (26-34) pg MCHC 32.1 (32-36) g/dl RDW 13.2 (11.5-14.5) % Plt Count 306 (150-375) k/mm3 MPV 8.9 (7.4-10.4) fl Immature Gran % (Auto) 0.2 (0-0.5) % Neut % (Auto) 67.5 (45.5-73.1) % Lymph % (Auto) 25.4 (18.3-44.2) % [place] % (Auto) 6.1 (2.6-8.5) % Eos % (Auto) 0.6 (0-4.4) % Baso % (Auto) 0.2 (0.2-1.2) % Lymph # (Auto) 1.38 (0.9-3.2) K/mm3 [place] # (Auto) 0.3 (0.1-0.6) K/mm3 Eos # (Auto) 0.0 (0-0.3) K/mm3 Baso # (Auto) 0.0 (0.0-0.1) K/mm3 Abs Immat Gran (auto) 0.01 (0.00-0.031) K/mm3 Absolute Neuts (auto) 3.7 (1.3-6.7) K/mm3 Absolute Nucleated RBC 0.000 (0.0-0.012) K/mm3 Nucleated RBC % 0.0 (0.0-0.2) % PT 12.7 (11.1-14.7) Seconds INR 0.9 APTT 27.1 (22.3-36.8) Seconds Sodium 133 L (137-145) mmol/L Potassium 3.8 (3.4-5.0) mmol/L Chloride 101 (98-107) mmol/L Carbon Dioxide 19 L (22-30) mmol/L Anion Gap 13 H (4-12) mmol/L BUN 10 (7-17) mg/dL Creatinine 0.69 L (0.7-1.0) mg/dL Estim Creat Clear Calc 63 ml/min Estimated GFR > 60 (59 - ) Glucose 143 H (65-110) mg/dL Calcium 8.9 (8.4-10.2) mg/dL Total Bilirubin 0.4 (0.2-1.3) mg/dL AST 27 (14-36) U/L ALT 26 (6-35) U/L Alkaline Phosphatase 121 (38-126) U/L Troponin I < 0.012 (0.000-0.034) ng/mL Total Protein 7.0 (6.3-8.2) g/dL Albumin 4.2 (3.5-5.1) g/dL Lipase 28 (23-300) U/L Influenza A (RT-PCR) Positive A (Negative) Influenza B (RT-PCR) Negative (Negative) RSV (RT-PCR) Negative (Negative) SARS-CoV-2 RNA (RT-PCR) Negative (Negative) Imaging Data Radiologist's impression: ITS Impressions Chest X-Ray 08/04/24 06:43 IMPRESSION: 1. Mild scarring at the lung apices. ECG Data EKG #1: ECG completion date: 08/04/24 ECG completion time: 06:14 EKG Interpretation: tachycardia (106), no ectopy, no ST changes, normal QRS and normal QT Discharge Plan Discharge Clinical Impression: Influenza A Back pain Qualifiers: Back pain location: thoracic back pain Chronicity: unspecified Back pain laterality: unspecified Qualified Code(s): M54.6 - Pain in thoracic spine Patient Disposition: Home, Self-Care Condition: Stable Instructions: Influenza (ED) Patient Language: Upper Sorbian Prescriptions: New ondansetron 4 mg tablet,disintegrating 4 mg PO Q6-8H PRN (Reason: nausea and vomiting) Qty: 14 0RF Follow-up/Referrals: Flowella,Abad Barroso MD [Primary Care Provider] - Stand Alone Forms: Work/School Release IP Time of Disposition: 09:10
[2024-08-04 09:26] VITALS: BP 183/89; PULSE 90; RESP 20; TEMP 36.5; O2SAT 96
[2024-08-04 09:33] LABS: Troponin I < 0.012 ng/mL (0.000-0.034)
== END 2024-08-04 09:29 | disposition home or self-care (01) ==
PROVIDERS: Student in an Organized Health Care Education/Training Program; Emergency Provider Family Medicine; PCP Family Medicine
DX: J10.1 Influenza due to other identified influenza virus with other respiratory manifestations (principal); M54.6 Pain in thoracic spine; Z20.822 Contact with and (suspected) exposure to COVID-19; R00.0 Tachycardia, unspecified; R94.31 Abnormal electrocardiogram [ECG] [EKG]
CPT/HCPCS: 36415; 71046; 80053; 83690; 84484; 85025; 85610; 85730; 87637; 93005; 96361; 96374; 99284; J1885; J7030

== ENCOUNTER 2024-08-19 04:47 | Emergency (ER) | payer BC, SELFPAY ==
[2024-08-19 04:49] VITALS: BP 206/101; PULSE 100; RESP 18; TEMP 36.6; O2SAT 100
[2024-08-19] MEDS: LORazepam (*CRX) 1 MG TABLET 2 MG PO (05:18)
[2024-08-19 05:35] VITALS: BP 180/84; PULSE 100; RESP 12; O2SAT 99
[2024-08-19 05:39] LABS: Basophils Absolute Auto 0.1 K/mm3 (0.0-0.1); Basophils Percent Auto 0.7 % (0.2-1.2); Eosinophils Absolute Auto 0.1 K/mm3 (0-0.3); Eosinophils Percent Auto 1.1 % (0-4.4); Hematocrit 32.3 % (37.0-47.0); Hemoglobin 10.5 g/dL (12.0-15.0); Immature Granulocyte Absolute 0.02 K/mm3 (0.00-0.031); Immature Granulocyte Percent A 0.3 % (0-0.5); Lymphocytes Absolute Auto 1.72 K/mm3 (0.9-3.2); Lymphocytes Percent Auto 22.9 % (18.3-44.2); Mean Corpuscular HGB Conc 32.5 g/dl (32-36); Mean Corpuscular Hemoglobin 33.2 pg (26-34); Mean Corpuscular Volume 102.2 fl (80-100); Mean Platelet Volume 8.3 fl (7.4-10.4); Monocytes Absolute Auto 0.6 K/mm3 (0.1-0.6); Monocytes Percent Auto 7.7 % (2.6-8.5); Neutrophils Absolute Auto 5.1 K/mm3 (1.3-6.7); Neutrophils Percent Auto 67.3 % (45.5-73.1); Platelet Count Result 649 k/mm3 (150-375); Red Blood Count 3.16 M/mm3 (4.2-5.4); Red Cell Distribution Width 14.2 % (11.5-14.5); White Blood Count 7.5 K/mm3 (4.5-10.0)
[2024-08-19 05:48] LABS: Prothrombin Time 13.2 Seconds (11.1-14.7)
[2024-08-19 05:49] LABS: Alanine Aminotransferase 21 U/L (6-35); Albumin Level 4.4 g/dL (3.5-5.1); Alkaline Phosphatase 155 U/L (38-126); Anion Gap 11 mmol/L (4-12); Aspartate Amino Transferase 27 U/L (14-36); Bilirubin,Total 0.7 mg/dL (0.2-1.3); Blood Urea Nitrogen 10 mg/dL (7-17); Calcium 9.3 mg/dL (8.4-10.2); Carbon Dioxide 23 mmol/L (22-30); Chloride 103 mmol/L (98-107); Estimated CRCL calculation 57 ml/min; Estimated Glomerular Filt Rate > 60; Glucose 128 mg/dL (65-110); Lipase 26 U/L (23-300); Partial Thromboplastin Time 26.6 Seconds (22.3-36.8); Potassium 3.8 mmol/L (3.4-5.0); Sodium 137 mmol/L (137-145)
[2024-08-19 06:00] LABS: Troponin I < 0.012 ng/mL (0.000-0.034)
--- NOTE | 2024-08-19 06:12 | ED.ANXIETY ---
HPI - Anxiety General Chief Complaint: Anxiety Stated Complaint: short of breath Time Seen by Provider: 08/19/24 04:54 History of Present Illness HPI narrative: 64-year-old female presenting to the emergency department for evaluation of hypertension and anxiety. Patient states she is very anxious and has lots of stressors going on her life and that is what raised her blood pressure. She is dealing with a lot of emotional stress at home, recently diagnosed with flu, denies any homicidal or suicidal ideation. Takes citalopram for chronic anxiety. States she was concerned that she was having some chest pain so she came to the ER for evaluation. No cardiac history to her knowledge. No trauma or injury. No fever chills. No cough, no shortness of breath or back pain or abdominal pain. Was otherwise in her normal state of health. Pain is been going on for several days. Related Data Home Medications ?Medication ?Instructions ?Recorded ?Confirmed ?Last Taken ?Type azithromycin 250 mg tablet mg 08/19/24 Unknown History citalopram 20 mg tablet mg 08/19/24 08/18/24 History cyclobenzaprine 10 mg tablet mg 08/19/24 08/18/24 History pantoprazole 40 mg tablet,delayed mg PO 08/19/24 08/19/24 History release tramadol 50 mg tablet mg 08/19/24 08/18/24 History Allergies Allergy/AdvReac Type Severity Reaction Status Date / Time No Known Allergies Allergy Verified 08/19/24 05:01 Review of Systems Review of Systems: As reviewed above [facility] Social History Social History Substance use type: does not use Exam Narrative: GENERAL: Extremely anxious, tearful, repeatedly apologizing necessarily HEAD: [Normocephalic, atraumatic.] EYES: [PERRLA and EOMI.] ENT: Nares clear, no rhinorrhea or epistaxis. Mucous membranes moist. NECK: Supple. CHEST: [Clear to auscultation. No respiratory distress.] HEART: [Regular rate and rhythm]. No murmur heard. [Normal peripheral pulses.] ABDOMEN: [Soft, nondistended], [nontender], [No rigidity or guarding] EXTREMITIES: Normal range of motion. [No edema.] SKIN: Warm, dry, no rash. NEURO: [No focal deficits]. Alert and oriented [x3.] PSYCH: Tearful affect, extremely anxious Course Vital Signs Vital signs: Vital Signs Temperature 36.6 C 08/19/24 04:49 Pulse Rate 100 08/19/24 04:49 Respiratory Rate 18 08/19/24 04:49 Blood Pressure 206/101 H 08/19/24 04:49 Pulse Oximetry 100 08/19/24 04:49 Oxygen Delivery Room Air 08/19/24 04:49 Temperature 36.6 C 08/19/24 04:49 Pulse Rate 100 08/19/24 06:15 Respiratory Rate 20 08/19/24 06:15 Blood Pressure 158/78 H 08/19/24 06:15 Pulse Oximetry 99 08/19/24 06:15 Oxygen Delivery Room Air 08/19/24 04:49 MDM - Anxiety MDM Narrative Medical decision making narrative: 64-year-old female with history of anxiety and hypertension presenting with complaints of elevated blood pressure, anxiety and feels like she is having a panic attack. She has lots of social stressors and events in her life they were causing her stress. She endorses chest discomfort last few days and was recently diagnosed with influenza. She is mildly hypertensive the blood pressure 180/84, this came down 158/78 without any intervention and simply resting in the stretcher in a quiet environment. She has 2+ symmetric pulses, clear breath sounds, no signs of edema in her legs, no calf swelling or asymmetry. Suspicion presently is for an anxiety attack versus panic disorder versus less likely ACS, pneumothorax, pneumonia from her recent influenza. Will obtain chest x-ray, EKG, troponin, CBC, CMP. She was given Ativan for anxiety with good relief of her symptoms. She was placed on cardiac monitoring telemetry. EKG shows no signs of ischemia. Workup shows no leukocytosis. No significant anemia. Normal coagulation panel. Electrolyte panel within normal limits. Normal renal function. Normal glucose, normal hepatic function. Negative troponin. Negative lipase. Patient was re-evaluated with symptom resolution and improvement in her blood pressure. She is safe and stable for discharge with regular PCP follow-up and given return precautions. Differential Diagnosis Differential diagnosis: Likely hyperventilation, panic disorder, acute anxiety and other Medical Records Attestation: I reviewed the patient's medical records. Lab Data Attestation: I reviewed the patient's lab results. 08/19/24 05:33 08/19/24 05:33 Labs: Lab Results 08/19/24 Range/Units 05:33 WBC 7.5 (4.5-10.0) K/mm3 RBC 3.16 L (4.2-5.4) M/mm3 Hgb 10.5 L (12.0-15.0) g/dL Hct 32.3 L (37.0-47.0) % MCV 102.2 H (80-100) fl MCH 33.2 (26-34) pg MCHC 32.5 (32-36) g/dl RDW 14.2 (11.5-14.5) % Plt Count 649 H D (150-375) k/mm3 MPV 8.3 (7.4-10.4) fl Immature Gran % (Auto) 0.3 (0-0.5) % Neut % (Auto) 67.3 (45.5-73.1) % Lymph % (Auto) 22.9 (18.3-44.2) % [place] % (Auto) 7.7 (2.6-8.5) % Eos % (Auto) 1.1 (0-4.4) % Baso % (Auto) 0.7 (0.2-1.2) % Lymph # (Auto) 1.72 (0.9-3.2) K/mm3 [place] # (Auto) 0.6 (0.1-0.6) K/mm3 Eos # (Auto) 0.1 (0-0.3) K/mm3 Baso # (Auto) 0.1 (0.0-0.1) K/mm3 Abs Immat Gran (auto) 0.02 (0.00-0.031) K/mm3 Absolute Neuts (auto) 5.1 (1.3-6.7) K/mm3 Absolute Nucleated RBC 0.000 (0.0-0.012) K/mm3 Nucleated RBC % 0.0 (0.0-0.2) % PT 13.2 (11.1-14.7) Seconds INR 1.0 APTT 26.6 (22.3-36.8) Seconds Sodium 137 (137-145) mmol/L Potassium 3.8 (3.4-5.0) mmol/L Chloride 103 (98-107) mmol/L Carbon Dioxide 23 (22-30) mmol/L Anion Gap 11 (4-12) mmol/L BUN 10 (7-17) mg/dL Creatinine 0.84 (0.7-1.0) mg/dL Estim Creat Clear Calc 57 ml/min Estimated GFR > 60 (59 - ) Glucose 128 H (65-110) mg/dL Calcium 9.3 (8.4-10.2) mg/dL Total Bilirubin 0.7 (0.2-1.3) mg/dL AST 27 (14-36) U/L ALT 21 (6-35) U/L Alkaline Phosphatase 155 H (38-126) U/L Troponin I < 0.012 (0.000-0.034) ng/mL Total Protein 8.0 (6.3-8.2) g/dL Albumin 4.4 (3.5-5.1) g/dL Lipase 26 (23-300) U/L Imaging Data Attestation: I personally reviewed and interpreted this imaging study as follows: My impression: Chest x-ray per my interpretation shows no consolidation, no pneumothorax, no signs of pneumonia. No cardiomegaly. ECG Data EKG #1: Attestation: I personally reviewed and interpreted this ECG as follows: ECG completion date: 08/19/24 ECG completion time: 04:58 Prior ECG tracings: available for review Interpretation: Sinus rhythm, no signs of ST segment elevations, depressions or inversions. Regular rate, regular rhythm, regular axis. QTC 469, QRS 98, TX 152. Compared to previous EKG no significant interval change. No signs of acute ischemic event. Overall normal sinus rhythm. Discharge Plan Discharge Clinical Impression: Acute anxiety, Chest pain Patient Disposition: Home, Self-Care Condition: Stable Instructions: Antibiotic Form, Chest Pain (DC), Anxiety (ED) Additional Instructions: Your cardiac workup is reassuring, no signs of any heart damage. Your labs, chest x-ray, and EKG are normal. Follow-up with regular doctor. Return with any new or worsening concerns at any time. Patient Language: Kazakh Prescriptions: No Action azithromycin 250 mg tablet tramadol 50 mg tablet pantoprazole 40 mg tablet,delayed release (DR/EC) PO cyclobenzaprine 10 mg tablet citalopram 20 mg tablet ondansetron 4 mg tablet,disintegrating 4 mg PO Q6-8H PRN (Reason: nausea and vomiting) Qty: 14 0RF Follow-up/Referrals: Jordyn,Abad Barroso MD [Primary Care Provider] - Time of Disposition: 06:48 Quality HEART score for chest pain patients History: slightly suspicious ECG: normal Age: > 45 and < 65 years Risk factors: 1 or 2 risk factors Troponin: < or = to 1x normal limit Heart score: 2
[2024-08-19 06:15] VITALS: BP 158/78; PULSE 100; RESP 20; O2SAT 99
== END 2024-08-19 06:57 | disposition home or self-care (01) ==
PROVIDERS: Emergency Provider Student in an Organized Health Care Education/Training Program; PCP Family Medicine
DX: F41.9 Anxiety disorder, unspecified (principal); R07.9 Chest pain, unspecified; I10 Essential (primary) hypertension; Z79.899 Other long term (current) drug therapy; R94.31 Abnormal electrocardiogram [ECG] [EKG]
CPT/HCPCS: 36415; 71045; 80053; 83690; 84484; 85025; 85610; 85730; 93005; 99284; A9270